=== PATIENT | female | born 1995 | race Caucasian/White ===

== ENCOUNTER 2016-07-11 17:47 | Emergency (ER) | payer OTHER, MEDICAID ==
[2016-07-11 18:04] VITALS: RESP 16
[2016-07-11] MEDS ORDERED: HYDROCOD/APAP 5/325 PREPACK#6 BTL TAKEHOME ONE (18:41)
--- NOTE | 2016-07-11 18:41 | EDPHY ---
General Time Seen by Provider: 07/11/16 18:03 Narrative: CHIEF COMPLAINT: facial pain, recent piercings HISTORY OF PRESENT ILLNESS: patient had piercing placed 2 days ago to the lip and to bilateral cheeks. This was done at a residence and not professionally. She noted pain immediately after that has worsened over the past 2 days. No fever or chills. No purulence. She removed herself because of the pain. Worse with any kind of movement. Severe pain that is constant. No other associated complaints or modifying factors past REVIEW OF SYSTEMS: Ten systems reviewed and are negative unless otherwise noted in the HPI EXAMINATION General Appearance: Alert, no distress Head: normocephalic, atraumatic Eyes: Pupils equal and round, no conjunctival pallor or injection ENT, Mouth: Mucous membranes moist.. Stings to the lower lip that appear normal without signs of infection. Neck: Normal inspection, supple, non-tender Cardiovascular: Normal rate. Pulses intact distally with good signs of perfusion. Gastrointestinal: Abdomen is soft and nontender Skin: Warm and dry, no rash . No erythema or edema. There are signs of recent piercings on both cheeks. No purulence, fluctuance or induration. No surrounding cellulitis. Extremities: Nontender, no pedal edema Psychiatric: Mood and affect normal MDM: 6:40 p.m. adverse reaction to home facial piercings. No signs of cellulitis Or abscess. Will treat prophylactically with Keflex. do not return the piercings to their locations. Follow up with primary care physician. I discussed return to ER precautions for worsening pain, redness, swelling or purulence. She is comfortable this plan. Her tetanus will be updated prior to discharge home. SUPERVISION: This patient was independently evaluated without the aide of supervising physician. - History Smoking Status: Current every day smoker - Objective Vital Signs: Initial Vital Signs Temperature (C) 98.6 F 07/11/16 18:01 Heart Rate 78 07/11/16 18:01 Respiratory Rate 16 07/11/16 18:01 Blood Pressure 106/67 07/11/16 18:01 O2 Sat (%) 97 07/11/16 18:01 O2 Delivery Mode Room Air Allergies/Adverse Reactions: No Known Allergies Allergy (Verified 12/22/15 11:04) Home Medications: Medication Instructions Recorded diphenhydrAMINE [Benadryl 25 MG 25 mg PO Q6-8PRN PRN #10 tab 12/22/15 (*)] Amoxicillin/Clavulanate Pot 875 mg PO BID #20 tab 07/11/16 [Augmentin 875 MG TAB (*)] Departure - Departure Disposition: Home, Routine, Self-Care Clinical Impression: Piercing Condition: Good Instructions: Hydrocodone/Acetaminophen (By mouth), Cellulitis (ED) Additional Instructions: Follow-up with primary care physician. Return to the ER for worsening symptoms as discussed Referrals: NONE *PRIMARY CARE P,. [Primary Care Provider] - As per Instructions Virginia Carr MD [Medical Doctor] - As per Instructions Stand Alone Forms: Work Excuse Prescriptions: Amoxicillin/Clavulanate Pot [Augmentin 875 MG TAB (*)] 875 mg PO BID #20 tab
[2016-07-11] MEDS ORDERED: TDAP ADULT 0.5 ML INJ (BOOSTRIX) IM ONE (18:51)
[2016-07-11 19:06] VITALS: BP 135/47; PULSE 76; TEMP 97.5; O2SAT 98
== END 2016-07-11 19:05 | disposition home or self-care (01) ==
PROC: 3E0234Z Introduction of Serum, Toxoid and Vaccine into Muscle, Percutaneous Approach (ICD-10-PCS; principal; 2016-07-11)
DX: S09.93XA Unspecified injury of face, initial encounter (principal); F17.200 Nicotine dependence, unspecified, uncomplicated; W45.8XXA Other foreign body or object entering through skin, initial encounter; Z23 Encounter for immunization

== ENCOUNTER 2016-11-15 01:43 | Emergency (ER) | payer OTHER, MEDICAID ==
[2016-11-15] MEDS ORDERED: IPRATROPIUM/ALBUTEROL 3 ML DEYVIAL IH ONE (02:33)
--- NOTE | 2016-11-15 03:27 | EDPHY ---
H & P Stated Complaint: vomiting x2 tonight noted blood Time Seen by Provider: 11/15/16 02:23 HPI/ROS: HPI The patient presents with coughing with blood tinged sputum for the last 1 hour. The patient says she has been feeling generally sick for the last 1 month with loose bowel movements, occasional coughing. However, tonight she awoke, she felt sweaty, she went outside in use the hot tub. She began coughing and then initially with clear sputum, which then became somewhat bloody and now is clear again. She does not feel short of breath, she denies chest pain. She is a smoker. She has no prior history of similar. She has not had a fever weight loss. REVIEW OF SYSTEMS Constitutional: No fever, no chills. Eyes: No discharge. ENT: No sore throat. Cardiovascular: No chest pain, no palpitations. Respiratory: Positive for cough, no shortness of breath. Gastrointestinal: No abdominal pain, no vomiting. Genitourinary: No hematuria. Musculoskeletal: No back pain. Skin: No rashes. Neurological: No headache. PMHx: History of DVT of lower extremity Soc Hx: Smokes cigarettes FHx: PHYSICAL General Appearance: Alert, no distress Eyes: Pupils equal and round no pallor or injection ENT, Mouth: Mucous membranes moist Respiratory: There are no retractions, lungs are clear to auscultation Cardiovascular: Regular rate and rhythm Gastrointestinal: Abdomen is soft and non-tender, no masses, bowel sounds normal Neurological: A&O, moves all extremities Skin: Warm and dry, no rashes Musculoskeletal: Neck is supple non tender Extremities: symmetrical, full range of motion Psychiatric: Patient is oriented X 3, there is no agitation Source: Patient Exam Limitations: No limitations - Personal History LMP (Females 10-55): Over 28 Days Ago Current Tetanus/Diphtheria Vaccine: Yes Current Tetanus Diphtheria and Acellular Pertussis (TDAP): Yes Tetanus Vaccine Date: < 10 years - Medical/Surgical History Hx Asthma: No Hx Chronic Respiratory Disease: No Hx Diabetes: No Hx Cardiac Disease: No Hx Renal Disease: No Hx Cirrhosis: No Hx Alcoholism: No Hx HIV/AIDS: No Hx Splenectomy or Spleen Trauma: No Other PMH: pmh: hx blood clot R leg,. psh: dental, epidural for - Social History Smoking Status: Current every day smoker Constitutional: Initial Vital Signs Temperature (C) 36.8 C 11/15/16 01:50 Heart Rate 85 11/15/16 01:50 Respiratory Rate 17 11/15/16 01:50 Blood Pressure 96/61 L 11/15/16 01:50 O2 Sat (%) 96 11/15/16 01:50 O2 Delivery Mode Room Air Allergies/Adverse Reactions: No Known Allergies Allergy (Verified 12/22/15 11:04) Home Medications: Medication Instructions Recorded Naproxen 500 mg PO BID #30 tablet 11/15/16 Medical Decision Making - Diagnostics Imaging Results: Chest x-ray two view shows no acute abnormalities, interpreted by me, radiology interpretation is pending. Differential Diagnosis: This is a 21-year-old female, history positive for smoking, who presents with cough with blood-tinged sputum for the last 1 hour. This is now resolved and she is coughing so it is productive of clear sputum. She is not hypoxic or tachycardic. She is generally well-appearing. Her lung exam is unremarkable. Differential diagnosis includes bronchitis, URI type illness, pneumonia, TB is considered, however the patient does not have any risk factors or constitutional symptoms, PE is also a consideration, however the patient does not have any tachycardia or hypoxia. Plan for chest x-ray, nebulizer in the emergency room. Patient requests test and this is been ordered. - Data Points Laboratory Results: 11/15/16 02:53 Beta HCG, Qual NEGATIVE Medications Given: Discontinued Medications Albuterol/Ipratropium (Duoneb) 3 ml IH EDNOW ONE Stop: 11/15/16 02:34 Last Admin: 11/15/16 03:03 Dose: 3 ml Departure - Departure Disposition: Home, Routine, Self-Care Clinical Impression: Cough, Hemoptysis Condition: Good Instructions: Hemoptysis (ED), Albuterol (By breathing) Referrals: [facility],. [Clinic] - As per Instructions Prescriptions: Naproxen 500 mg PO BID #30 tablet
[2016-11-15] MEDS ORDERED: ALBUTEROL INH PREPACK MDI TAKEHOME ONE (04:02)
[2016-11-15 04:13] VITALS: BP 96/63; PULSE 71; RESP 14; TEMP 98.4; O2SAT 97
== END 2016-11-15 04:12 | disposition home or self-care (01) ==
DX: R04.2 Hemoptysis (principal); F17.210 Nicotine dependence, cigarettes, uncomplicated